=== PATIENT | male | born 2000 | race Caucasian/White ===

== ENCOUNTER 2018-06-24 23:48 | Emergency (ER) | payer OTHER ==
[~2018-06-24] VITALS: Ht 172.7 cm; Wt 68.0 kg
[2018-06-25 00:02] VITALS: BP 120/54
[2018-06-25] MEDS ORDERED: IBUPROFEN 600600 M1 PO (00:26)
== END 2018-06-25 01:00 | disposition home or self-care (01) ==
LOC: ER 23:48
DX: S93.491A Sprain of other ligament of right ankle, initial encounter (principal); Z91.018 Allergy to other foods; V87.8XXA Person injured in other specified noncollision transport accidents involving motor vehicle (traffic), initial encounter; Y93.89 Activity, other specified; Y92.89 Other specified places as the place of occurrence of the external cause; Y99.8 Other external cause status